=== PATIENT | male | born 1975 | race Two or more races ===

== ENCOUNTER 2022-08-01 23:24 | Emergency (ER) | payer OTHER ==
[~2022-08-01] VITALS: Ht 172.7 cm; Wt 97.5 kg
[2022-08-02] MEDS ORDERED: KETO10TA2 PO (03:34)
== END 2022-08-02 04:21 ==
LOC: ER 23:24
DX: S63.055A Dislocation of other carpometacarpal joint of left hand, initial encounter (principal); S63.045A Dislocation of carpometacarpal joint of left thumb, initial encounter; W19.XXXA Unspecified fall, initial encounter; Y93.9 Activity, unspecified; Y92.9 Unspecified place or not applicable